=== PATIENT | female | born 1980 | race Caucasian/White ===

== ENCOUNTER → 2017-08-20 | Outpatient (CLI) | payer OTHER ==
[~2017-08-20] MED LIST: FLEXERIL10 MG PO; VICODIN 5/500 T1 TAB PO; VOLTAREN75 MG PO
[2017-08-21 15:19] LABS: HEMOGLOBIN 13.8 g/dL (12.2-16.2); LYMPH % 26.2 % (10-50.0)
[2017-08-21 15:34] LABS: BUN 14 mg/dL (7-18)
[2017-08-21 15:41] LABS: GFR (ESTIMATED) 81 ML/MIN (59-)
== END ==
LOC: LAB 16:04
PROVIDERS: Physician Assistant
DX: F41.9 Anxiety disorder, unspecified (principal)